=== PATIENT | male | born 1985 | race Caucasian/White ===

== ENCOUNTER 2020-05-25 22:00 | Emergency (ER) | payer OTHER ==
[~2020-05-25] VITALS: Ht 195.6 cm; Wt 90.7 kg
[~2020-05-25 22:00] MED LIST: Cleocin HCl300 MG PO; Prednisone20 MG PO
[2020-05-26] MEDS ORDERED: HYDR1TAB94 PO (00:34)
[2020-05-26] MEDS ORDERED: CEPH500 PO (00:34)
== END 2020-05-26 00:50 | disposition home or self-care (01) ==
LOC: ER 22:00
DX: S62.633B Displaced fracture of distal phalanx of left middle finger, initial encounter for open fracture (principal); F17.210 Nicotine dependence, cigarettes, uncomplicated; Z23 Encounter for immunization; W31.2XXA Contact with powered woodworking and forming machines, initial encounter
CPT/HCPCS: 12001; 73130; 90471; 90714; 96365-59; 96375-59; 99283-25; A9270; J0690; J1170; J2405